=== PATIENT | female | born 1955 | race Caucasian/White ===

== ENCOUNTER 2020-10-13 15:24 | Emergency (ER) | payer OTHER ==
[~2020-10-13] VITALS: Ht 160 cm; Wt 132.4 kg
[~2020-10-13 15:24] MED LIST: ADVAIR; ADVAIR 250-501 EACH INH; ADVAIR HFA 230M12 GM INH; ADVAIRDISKUS; ALBUTEROL2.5 MG/31 INH; ALLOPURINOL 30300 M2 PO; AMBIEN 10 MG TA10 MG PO; AMBIENCR; CELEBREX50 MG PO; CELEXA40 MG PO; CIPROFLOXACIN500 M1 PO; DOXYCYCLINE 10100 MG PO; ESTROGENS CONJUGATED; GLYBURIDE 2.52.5 MG PO; HYDROCHLOROTHIA25 M2 PO; HYDROCODONE-AP1 EAC6 PO; INDOMETHACIN 2525 MG PO; LASIX 20 MG TAB20 MG PO; LEVAQUIN 500 M500 MG PO; MEDROLDOSEPACK PO; NAPROSYN500 MG PO; NORCO 5-325 TA1 EAC1 PO; PREDNISONE 10 M10 MG PO; PREDNISONE 20 M20 M1 PO; PREDNISONE50 MG PO; PROTONIX40 M1 PO; PROVENTIL; SEROQUEL 50 MG50 MG PO; SINGULAIR 10 MG10 M1 PO; TESSALON PERLE100 MG PO; VENTOLIN HFA 1818 GM INH; VICODIN 5-3001 EACH PO; WELLBUTRIN XL300 MG PO; ZPAK PO
[2020-10-13 15:45] LABS: ABSOLUTE BASOPHILS 0.1 thou/uL (0.0-0.2); ABSOLUTE EOSINOPHILS 0.1 thou/uL (0.0-0.7); ABSOLUTE LYMPHOCYTES 0.9 thou/uL (0.8-5.3); ABSOLUTE NEUTROPHILS 5.8 thou/uL (1.6-8.1); BASOPHILS 0.7 %; EOSINOPHILS 1.1 %; HEMATOCRIT 33.1 % (37.0-47.0); HEMOGLOBIN 11.2 gm/dL (12.0-15.0); LYMPHOCYTES 11.7 %; MCH 29.9 pg (26.0-34.0); MCHC 33.7 g/dL (28.0-37.0); MCV 88.5 fL (80.0-100.0); MONOCYTES 12.8 %; NUCLEATED RBCS 0 /100WBC; PLATELET COUNT* 180 thou/uL (150-400); POLYS 73.7 %; RBC 3.74 mil/uL (4.20-5.00); RDW-CV 16.5 % (10.5-14.5); WBC 7.8 thou/uL (4.0-11.0)
[2020-10-13 15:52] LABS: CALCIUM 9.2 mg/dL (8.5-10.1); CREATININE 1.2 mg/dL (0.6-1.3); POTASSIUM 3.9 mmol/L (3.5-5.1)
[2020-10-13 16:03] LABS: ALBUMIN 2.9 g/dL (3.4-5.0); TOTAL BILIRUBIN 0.7 mg/dL (<0.1-1.0); TOTAL PROTEIN 8.2 g/dL (6.4-8.2)
[2020-10-13 18:23] VITALS: BP 139/44
--- NOTE | 2020-10-14 10:28 | EKG ---
[place] [id number] ELECTROCARDIOGRAM REPORT Name: LORINCECIL Shawna Room: [facility]#: [id number] Admission: 10/13/20 Attend Phys: Discharge: 10/13/20 Date of : 57 Date of Service: 10/13/20 1532 Report #: [id number] THIS REPORT FOR: //name// [facility] ED Test Date: 2020-10-13 Test Time: 15:32:11 Pat Name: CECIL PADGETT Department: Room: Gender: F [employer]: TYRONE : 1955 Requested By: Emmanuel Clemons Order Number: [id number] MD: Alan More Measurements Intervals [place] Rate: 65 P: 41 AK: 156 QRS: -9 QRSD: 107 T: 120 QT: 360 QTc: 375 Interpretive Statements Sinus rhythm Low voltage, precordial leads Borderline repolarization abnormality Baseline wander in lead(s) V1 Compared to ECG 05/13/2016 10:12:10 rate has increased Electronically Signed On 10-14-2020 10:28:39 CDT by Alan More [email or web address] <ELECTRONICALLY SIGNED> By: Alan More MD, [facility] 10/14/20 1028 1532 1532 Alan More MD, [facility] /EPI
== END 2020-10-13 18:24 | disposition home or self-care (01) ==
LOC: M.ERS 15:24
PROVIDERS: Family Medicine
DX: R53.1 Weakness (principal); R59.1 Generalized enlarged lymph nodes; R42 Dizziness and giddiness; J44.9 Chronic obstructive pulmonary disease, unspecified; J45.909 Unspecified asthma, uncomplicated; I10 Essential (primary) hypertension; E11.9 Type 2 diabetes mellitus without complications; Z98.51 Tubal ligation status; Z91.040 Latex allergy status; Z88.0 Allergy status to penicillin